=== PATIENT | female | born 1990 | race Caucasian/White ===

== ENCOUNTER 2016-05-18 06:12 | Day surgery (SDC) | payer OTHER ==
[2016-05-18 06:58] LABS: BASOPHILS % 0.7 (0.0-1.5); EOSINOPHILS % 6.6 % (0.0-6.8); MONOCYTES # 0.2 # k/uL (0.0-0.9); MONOCYTES % 4.3 % (0.0-11.0); NEUTROPHILS # 2.3 # k/uL (1.4-7.7)
[2016-05-18 07:43] LABS: eGFR (African) > 60; eGFR (Non-African) > 60
[2016-05-18] MEDS ORDERED: LACTATED RINGERS 1,000 ML IV.SOLN IV ONE (08:00)
[2016-05-18] MEDS ORDERED: MIDAZOLAM HCL 2 MG/2 ML VIAL ONE (08:00)
[2016-05-18] MEDS ORDERED: ACETAMINOPHEN 1,000 MG/100 ML INJ IV ONE (08:00)
[2016-05-18] MEDS ORDERED: fentaNYL CITRATE/PF 100 MCG/ 2ML AMP ONE (08:00)
[2016-05-18] MEDS ORDERED: SALINE FLUSH 10 ML DISP.SYRIN IVF ONE (08:00)
[2016-05-18] MEDS ORDERED: BUPIVACAINE HCL/PF 2.5 MG/ML 10ML VIAL IV ONE (08:00)
[2016-05-18] MEDS ORDERED: ATROPINE SULFATE IJ ONE (08:00)
[2016-05-18] MEDS ORDERED: ONDANSETRON HCL/PF 4 MG/ 2ML VIAL ONE (08:00)
[2016-05-18] MEDS ORDERED: SUCCINYLCHOLINE CHLORIDE 20 MG/ML 10ML VIAL ONE (08:00)
[2016-05-18] MEDS ORDERED: ROCURONIUM BROMIDE 10 MG/ML 5ML VIAL ONE (08:00)
[2016-05-18] MEDS ORDERED: KETOROLAC TROMETHAMINE 30 MG/1ML VIAL ONE (08:00)
[2016-05-18] MEDS ORDERED: DEXAMETHASONE SOD PHOS 4 MG/ML VIAL ONE (08:00)
[2016-05-18] MEDS ORDERED: SEVOFLURANE 250 ML LIQUID IH ONE (08:00)
[2016-05-18] MEDS ORDERED: PROPOFOL 200 MG/20 ML VIAL IV ONE (08:00)
[2016-05-18] MEDS ORDERED: MEPERIDINE HCL/PF 50 MG/ML DISP.SYRIN ONE (09:31)
--- NOTE | 2016-05-18 12:15 | Operative Note ---
SURGEON: Jameel Huston MD ANESTHESIA: General endotracheal. ESTIMATED BLOOD LOSS: 5 mL. PREOPERATIVE DIAGNOSIS: Desires sterilization. POSTOPERATIVE DIAGNOSIS: Desires sterilization. PROCEDURE PERFORMED: Laparoscopic tubal cauterization. OPERATIVE PROCEDURE AND FINDINGS: After I spoke with the patient, she was taken to the operating room. After an adequate level of general anesthesia, she was prepped and draped in the lithotomy position in a sterile fashion. A single-tooth tenaculum was placed on the anterior lip of the cervix and a sound was placed in the uterine cavity. These instruments were secured together to use for manipulation of the cervix and uterus during laparoscopy. A small infraumbilical incision was then made in the skin. Laparoscopic sleeve and trocar were gently inserted in the peritoneal cavity. Trocar was removed and a laparoscope was inserted. The peritoneum was insufflated with 3 L of carbon dioxide gas under direct visualization. Vita bipolar forceps were used to cauterize both fallopian tubes from the junction of the tube and uterus out to the mid-portion of each tube. Each cautery application lasted for 10 seconds. Once this was accomplished and no abnormalities were seen in the pelvis, including the bowel, fallopian tubes, ovaries, or uterus, all instruments were removed from the peritoneal cavity and vagina. Gas was allowed to escape from the peritoneum. The incision on the patient's abdomen was closed with interrupted 4-0 Vicryl. A Band-Aid was applied to the wound. Patient was awakened and extubated in the operating room and transferred to the recovery room in awake and stable condition. MARLEN
== END 2016-05-18 06:13 ==
LOC: OPSURG 06:12
PROVIDERS: ATTEND General Practice
DX: Z30.2 Encounter for sterilization (principal)
CPT/HCPCS: 36415; 58670; 80053; 81025; 85025; 85610; 85730; 86885; 86900; 86901; J0330; J0461; J1100; J1885; J2175; J2250; J2405; J2704; J3010; J3490; J7120; S1016